=== PATIENT | female | born 1970 | race Caucasian/White ===

== ENCOUNTER 2022-10-12 16:49 | Emergency (ER) | payer MEDICAID, SELFPAY ==
[2022-10-12 16:50] VITALS: BP 119/74; PULSE 77; RESP 16; TEMP 37.1; O2SAT 98; BMI 17.7
--- NOTE | 2022-10-12 17:07 | PC.NURSE ---
PT DID STATE SOMETIMES I JUST WANT TO BUT WHEN QUESTIONED FURTHER DENIED THIS FEELING AT THIS TIME. SHE STATES SHE STRUGGLES WITH DEPRESSION AND DOES TALK WITH HER PRIMARY CARE DOCTOR ABOUT THESE FEELINGS. NURSE ASKED IF PATIENT WOULD LIKE TO SPEAK TO SOMEONE TODAY ABOUT THOSE FEELINGS AND PT DECLINED STATING I DON'T FEEL THAT WAY RIGHT NOW, I JUST DO FEEL LIKE THAT OCCASIONALLY.
--- NOTE | 2022-10-12 17:16 | W.ED.FALL ---
HPI - Fall General: Chief Complaint: Fall Stated Complaint: LEFT KNEE, SHOULDER AND CLAVICLE PAIN S/P FALL Time Seen by Provider: 10/12/22 17:06 Source: patient Mode of arrival: EMS History of Present Illness: 52-year-old female complaining of pain on her left side, left knee left shoulder and left clavicle pain after ground-level mechanical fall. Arrived by EMS denies loss of consciousness no other injuries she is not on any anticoagulants. She had stumbled when her dog knocked her over outside. In route she was given morphine and Zofran. Blood glucose by EMS was 141. She denies any chest pain or shortness of breath any other injury. MD complaint: fall Onset (ago): minute(s) Fall from: standing Place fall occurred: home Loss of consciousness: None Prolonged down time: no Symptoms prior to fall: none Context: tripped/slipped Location of injury - extremities: Left: shoulder, arm and knee Severity: moderate Associated symptoms-after fall: Denies abdominal pain, chest pain, confusion, difficulty walking, headache(s), hematuria, lightheadedness, neck pain, numbness, short of breath, vertigo or weakness Review of Systems Const: Denies: fever(s), chills, body aches, change in appetite, fatigue or malaise ENMT: Denies: throat pain, ear or mastoid pain, nasal discharge or nasal congestion Card: Denies: chest pain or lightheadedness Resp: Denies: dyspnea, productive cough or non-productive cough GI: Denies: abdominal pain, nausea or vomiting : Denies: difficulty voiding, dysuria, urinary frequency, urinary urgency or hematuria Musc: Reports: extremity pain; Denies: neck pain or back pain Skin/Breast: Denies: rash or pruritus Neuro: Denies: headache(s), difficulty walking, vertigo or confusion PFSH ED PFSH: Medical History (Updated 10/27/22 @ 06:14 by Jagdish Lazo DO) No significant past medical history Surgical History (Updated 10/27/22 @ 06:14 by Jagdish Lazo DO) No pertinent past surgical history Physical Exam Const: GENERAL APPEARANCE: cooperative and comfortable ORIENTATION/CONSCIOUSNESS: Yes awake, Yes oriented to person, Yes oriented to place and Yes oriented to time HENMT: COMMON NORMALS: normocephalic, atraumatic, hearing grossly normal bilaterally, external ears normal, EAC's normal, TM's normal bilaterally, Normal nasal mucous membranes and turbinates present, moist oral mucous membranes and oropharynx normal HEAD & SCALP: normocephalic and atraumatic NOSE: Normal nasal mucous membranes and turbinates present EXTERNAL EAR: Yes external ears normal EXTERNAL AUDITORY CANAL: EAC's normal TYMPANIC MEMBRANE: TM's normal bilaterally Eye: COMMON NORMALS: Equal, round and reactive pupils present, EOMs intact bilaterally, conjunctivae normal and no scleral icterus CONJUNCTIVA: Yes conjunctivae normal PUPIL: Yes Equal, round and reactive pupils present Neck/C-Spine: COMMON NORMALS: full ROM, no lymphadenopathy, supple and no JVD Resp: COMMON NORMALS: normal respiratory effort, No retractions, No use of accessory muscles and clear to auscultation bilaterally AUSCULTATION: clear to auscultation bilaterally Cardio: COMMON NORMALS: no JVD, regular rate, regular rhythm and No murmurs present (Cardio) RATE: regular rate RHYTHM: regular rhythm GI: COMMON NORMALS: Soft to palpation and No hepatosplenomegaly present AUSCULTATION: Yes normoactive bowel sounds PALPATION: Yes Soft to palpation, No Tenderness to palpation present (GI), No Guarding due to palpation present (GI) and Yes No hepatosplenomegaly present Extremity: COMMON NORMALS: capillary refill normal, no clubbing, cyanosis or edema, no calf tenderness and no pedal edema Neuro: SENSORIUM/ORIENTATION: Yes oriented to person, Yes oriented to place and Yes oriented to time Skin: COMMON NORMALS: no rashes or lesions noted GENERAL SKIN EXAM: no rashes or lesions noted Course Vital Signs: Vital signs: Vital Signs Temperature 98.7 F 10/12/22 16:50 Pulse Rate 88 10/12/22 18:23 Respiratory Rate 16 10/12/22 16:50 Blood Pressure 101/76 10/12/22 17:32 Pulse Oximetry 100 10/12/22 18:23 Oxygen Delivery Me thod 10/12/22 17:32 MDM - Fall Medical Decision Making Imaging reviewed imaging reviewed x-ray shows proximal humerus fracture mildly impacted. No other fractures noted. Discharged home in sling pain medications and referral to orthopedics Medical Records I reviewed the patient's medical records. Lab Data Radiology Impressions Clavicle X-Ray 10/12/22 17:17 IMPRESSION: 1. There is a mildly impacted fracture of the surgical neck left humerus. 2. The left clavicle is intact. Knee X-Ray 10/12/22 17:17 IMPRESSION: No acute bony abnormality. Shoulder X-Ray 10/12/22 17:17 IMPRESSION: There is an impacted fracture of the surgical neck proximal left humerus. Discharge Plan Discharge Patient Disposition: Home Clinical Impression: Fracture, humerus closed Condition: Stable Prescriptions: New hydrocodone-acetaminophen 5-325 mg tablet 1 tab PO Q6H PRN (Reason: pain) Qty: 20 0RF Discharge Orders: Discharge ED (Routine); Ordered 10/12/22 Ordered By: Jagdish Lazo Referrals: Flip Peoples PA [Primary Care Provider] - Discharge Diet: Usual diet Discharge Activity: Limit activity as instructed Patient Instructions: Opioid Safety, Pain Management Activity Restrictions/Additional Instructions: You are seen today after a fall. Your left proximal humerus (upper arm) was fractured. You should keep your arm in a sling until you see orthopedics. manager behavioral will make arrangements for you to have a follow-up with orthopedics in the next 10 to 14 days. Coding Level of Care Code ED Recreation Officer for Sum[facility] Max
--- NOTE | 2022-10-12 17:17 | XRR_ITS ---
PROCEDURE INFORMATION: Exam: XR Left Shoulder Exam date and time: 10/12/2022 5:24 PM Age: 52 years old Clinical indication: Injury or trauma; Fall; Blunt trauma (contusions or hematomas); Shoulder; Left; Additional info: Pain/trauma TECHNIQUE: Imaging protocol: Radiologic exam of the Left shoulder. Views: 2 or more views. COMPARISON: CR XR shoulder LT min 2V* [id number] 04/02/2018 10:38 AM FINDINGS: Bones/joints: There is an impacted fracture of the surgical neck proximal left humerus. No dislocation. Visualized ribs are intact. Soft tissues: There is soft tissue edema adjacent to the humerus fracture. XR/XR shoulder LT min 2V* [id number] IMPRESSION: There is an impacted fracture of the surgical neck proximal left humerus.
--- NOTE | 2022-10-12 17:17 | XRR_ITS ---
PROCEDURE INFORMATION: Exam: XR Left Clavicle, Complete Exam date and time: 10/12/2022 5:24 PM Age: 52 years old Clinical indication: Injury or trauma; Fall; Blunt trauma (contusions or hematomas); Shoulder; Left TECHNIQUE: Imaging protocol: Radiologic exam of the Left clavicle. Complete exam. Views: Any number of views. COMPARISON: CR XR shoulder LT min 2V* [id number] 04/02/2018 10:38 AM FINDINGS: Bones/joints: There is a mildly impacted fracture of the surgical neck left humerus. No acute fracture of the clavicle. No dislocation. Soft tissues: Edema adjacent to the humerus fracture. XR/[place] [id number] IMPRESSION: 1. There is a mildly impacted fracture of the surgical neck left humerus. 2. The left clavicle is intact.
--- NOTE | 2022-10-12 17:17 | XRR_ITS ---
PROCEDURE INFORMATION: Exam: XR Left Knee Exam date and time: 10/12/2022 5:24 PM Age: 52 years old Clinical indication: Injury or trauma; Fall; Blunt trauma; Knee; Left; Additional info: Pain/trauma TECHNIQUE: Imaging protocol: Radiologic exam of the Left knee. Views: 3 views. COMPARISON: No relevant prior studies available. FINDINGS: Bones/joints: There is no knee joint effusion. The joint spaces are maintained. There is no intra-articular body. No acute fracture or dislocation. No chondrocalcinosis. Soft tissues: Normal. Other findings: There is no foreign body. XR/XR knee LT 3V* [id number] IMPRESSION: No acute bony abnormality.
[2022-10-12 17:32] VITALS: BP 101/76; O2SAT 98
--- NOTE | 2022-10-12 17:54 | PC.NURSE ---
NURSE APPLIED BP CUFF TO PTS L ARM. PT DID C/O PAIN TO L ARM BUT WHEN NURSE SUGGESTED CUFF BE PLACED ELSEWHERE PT DECLINED STATING ITS OK THERE, I DON'T WANT TO MOVE TO PUT IT ON THE OTHER SIDE.
[2022-10-12 18:23] VITALS: PULSE 88; O2SAT 100
== END 2022-10-12 18:24 | disposition home or self-care (01) ==
PROVIDERS: Emergency Provider Family Medicine; PCP Emergency Medicine
DX: S42.212A Unspecified displaced fracture of surgical neck of left humerus, initial encounter for closed fracture (principal); W18.09XA Striking against other object with subsequent fall, initial encounter
CPT/HCPCS: 73000; 73030; 73562; 99283

== ENCOUNTER 2023-04-02 20:48 | Emergency (ER) | payer MEDICAID, SELFPAY ==
[2023-04-02 20:48] VITALS: BP 116/74; PULSE 63; RESP 18; TEMP 36.4; O2SAT 97; BMI 17.2
--- NOTE | 2023-04-02 20:50 | CTR_ITS ---
PROCEDURE INFORMATION: Exam: CT Abdomen And Pelvis Without Contrast Exam date and time: 04/02/2023 9:13 PM Age: 53 years old Clinical indication: Abdominal pain; Flank; Left; Prior surgery; Surgery date: 6+ months; Surgery type: Partial hysterectomy; Additional info: Flank pain TECHNIQUE: Imaging protocol: Computed tomography of the abdomen and pelvis without contrast. Radiation optimization: All CT scans at this facility use at least one of these dose optimization techniques: automated exposure control; mA and/or kV adjustment per patient size (includes targeted exams where dose is matched to clinical indication); or iterative reconstruction. REPORTING DATA: Count of CT and Cardiac NM exams in prior 12 months: This patient has received 0 known CTs and 0 known cardiac nuclear medicine studies in the 12 months prior to the current study. COMPARISON: CR XR lumbar spine 2-3V* [id number] 04/02/2018 10:38 AM RADIATION DOSE METRICS: Total DLP (mGy-cm): 310.95 FINDINGS: Liver: Normal. No mass. Gallbladder and bile ducts: Normal. No calcified stones. No ductal dilation. Pancreas: Normal. No ductal dilation. Spleen: Normal. No splenomegaly. Adrenal glands: Normal. No mass. Kidneys and ureters: One or more nonobstructing left renal calyceal stones. Stomach and bowel: Bowel wall thickening in the rectum consistent with mild proctitis. Appendix: No evidence of appendicitis. Intraperitoneal space: Unremarkable. No free air. No significant fluid collection. Vasculature: Calcification of the abdominal aorta and/or iliac arteries consistent with atherosclerotic vessel disease. One or more calcified pelvic phleboliths. Lymph nodes: Unremarkable. No enlarged lymph nodes. Urinary bladder: Unremarkable as visualized. Reproductive: Small uterus versus previous partial hysterectomy. Bones/joints: Unremarkable. No acute fracture. Soft tissues: Unremarkable. CT/CT abdomen pelvis wo con [id number] IMPRESSION: 1. One or more nonobstructing left renal calyceal stones. 2. Bowel wall thickening in the rectum consistent with mild proctitis.
[2023-04-02 21:10] LABS: Basophils # 0.1 10^3/uL (0.0-0.1); Basophils % 0.3 %; Eosinophils % 0.1 %; Lymphocytes # 1.8 10^3/uL (0.8-4.8); Lymphocytes % 9.6 %; Mean Corpuscular HGB Conc 31.9 g/dL (30.0-36.0); Mean Corpuscular Hemoglobin 31.9 pg (28.0-34.0); Mean Platelet Volume 10.5 fL (7.4-10.4); Monocytes # 0.7 10^3/uL (0.2-0.9); Monocytes % 3.7 %; Neutrophils # 16.15 10^3/uL (1.8-7.7); Neutrophils % 85.9 %; Nucleated Red Blood Cells % 0 %; Platelet Count 243 10^3/cmm (130-400); Red Cell Distribution Width 12.9 % (12.1-15.1); White Blood Count 18.8 10^3/uL (4.0-10.0)
[2023-04-02 21:22] LABS: Bilirubin Urine Neg (Negative); Blood Urine 3+ (Negative); Glucose Urine UA Norm (Normal); Ketones Urine 2+ (Negative); Nitrate Urine Negative (Negative); Protein Urine 1+ (Negative); Urine Appearance SL Hazy (CLEAR); Urine Color Yellow (Yellow); Urobilinogen Urine 1 mg/dL (Negative); pH Urine 5 (5-7)
[2023-04-02 21:23] LABS: Add Urine Culture? Yes; Add Urine Microscopic? YES; Bacteria Urine TRACE /hpf; Leukocyte Esterase Urine Negative (Negative); Mucus Urine 3+ /hpf; RBC Urine 80-100 /hpf (0-2); Squamous Epithelial Cell Urine 0-4 /hpf (0-5); WBC Urine 0-4 /hpf (0-5)
[2023-04-02 21:32] LABS: Alanine Aminotransferase 7 U/L (0-33); Albumin Level 4.8 g/dL (3.5-5.2); Alkaline Phosphatase 123 U/L (35-105); Anion Gap 15.1 (5-19); Aspartate Amino Transferase 13 U/L (0-32); Blood Urea Nitrogen 6 mg/dL (6-20); Calcium 11.8 mg/dL (8.5-10.5); Carbon Dioxide 24 mmol/L (22-29); Chloride 106 mmol/L (98-107); Globulin 2.8 g/dL (1.3-4.6); Glomerular Filtration Rate 128.6 mL/min (90-130); Glucose 120 mg/dL (65-115); Osmolality Calculated 291 mOsm/kg (285-295); Potassium 4.1 mmol/L (3.5-5.1); Sodium 141 mmol/L (136-145); Total Bilirubin 0.3 mg/dL (0.15-1.2); Total Protein 7.6 g/dL (6.6-8.7)
[2023-04-02 21:38] VITALS: BP 121/81; PULSE 59; RESP 16; O2SAT 97
--- NOTE | 2023-04-02 21:46 | ED_ITS ---
HPI - Abdominal Pain General: Chief Complaint: Abdominal Pain Stated Complaint: FLANK PAIN Time Seen by Provider: 04/02/23 20:50 History of Present Illness: Patient presents to the ER with complaints of left-sided sharp stabbing flank pain. Patient also had some nausea vomiting as well. Patient denies any urinary tract signs or symptoms at this moment. Patient was given 4 mg Zofran and and Toradol by EMS with complete relief. Patient does not have a history of kidney stones. When his pain was the worst patient was unaware of anything she could do to affect it in good or bad ways. Patient has never had this pain before. Review of Systems General: Reports: 10 or more systems reviewed and unremarkable except in HPI and below PFSH ED PFSH: Medical History (Updated 04/02/23 @ 21:58 by Clarence Oliveira DO) No significant past medical history Surgical History (Updated 10/27/22 @ 06:14 by Jagdish Lazo DO) No pertinent past surgical history Physical Exam Const: COMMON NORMALS: no acute distress, average body habitus, patient oriented x3, no limitations, alert and well nourished HENMT: COMMON NORMALS: normocephalic, atraumatic, hearing grossly normal bilaterally, external ears normal, Normal external nose present and moist oral mucous membranes HEAD & SCALP: normocephalic and atraumatic NOSE: Normal external nose present EXTERNAL EAR: Yes external ears normal Eye: COMMON NORMALS: Equal, round and reactive pupils present, EOMs intact bilaterally, conjunctivae normal and no scleral icterus CONJUNCTIVA: Yes conj unctivae normal PUPIL: Yes Equal, round and reactive pupils present Neck/C-Spine: COMMON NORMALS: full ROM, no lymphadenopathy, supple, no meningeal signs, no JVD and Thyroid normal THYROID: Thyroid normal Lymph: LYMPHATIC: no lymphadenopathy noted Chest: COMMONS NORMALS: normal inspection of the chest and normal palpation of entire chest wall Resp: COMMON NORMALS: normal respiratory effort, No retractions, No use of accessory muscles and clear to auscultation bilaterally AUSCULTATION: clear to auscultation bilaterally Cardio: COMMON NORMALS: no JVD, regular rate, regular rhythm, S1 normal heart sound present, S2 normal heart sound present, No gallops present (Cardio), No clicks present (Cardio), No murmurs present (Cardio) and No rub (Cardio) RATE: regular rate RHYTHM: regular rhythm HEART SOUNDS: S1 normal heart sound present and S2 normal heart sound present GI: COMMON NORMALS: Normal to inspection, nondistended, normoactive bowel sounds present, Soft to palpation, non-tender, No hepatosplenomegaly present and no masses PALPATION: Yes Soft to palpation and Yes No hepatosplenomegaly present : COMMON NORMALS: Yes no CVA tenderness BLADDER/KIDNEY EXAM: Yes no CVA tenderness Back/Pelvis: COMMON NORMALS: no CVA tenderness Neuro: COMMON NORMALS: patient oriented x3 SENSORIUM/ORIENTATION: Yes alert MENINGEAL SIGNS: Yes no meningeal signs Course Vital Signs: Vital signs: Vital Signs Temperature 97.6 F 04/02/23 20:48 Pulse Rate 59 L 04/02/23 21:38 Respiratory Rate 16 04/02/23 21:38 Blood Pressure 121/81 04/02/23 21:38 Pulse Oximetry 97 04/02/23 21:38 MDM - Abdominal Pain Medical Decision Making Patient presents to the ER by EMS with left flank pain is totally resolved after they gave her Toradol and Zofran. Lab work was obtained which was benign other than a 18,000 white count and hematuria. No signs of urinary tract infection at this time. Patient's normotensive not tachycardic and does not have a elevated temperature. Abdo pelvis CT scan showed 1 or more nonobstructing left renal c alyceal stones. Patient remained pain-free and nausea free during her stay in ER. Patient will be discharged home with oral Toradol to take as needed. Patient should follow-up with her PCP in the next 1 week. Differential Diagnosis Likely calculus of kidney; Unlikely abdominal pain, acute appendicitis, constipation, diverticulitis, endometriosis, gastroenteritis, pancreatitis or small bowel obstruction Medical Records I reviewed the patient's medical records. Lab Data I reviewed the patient's lab results. 04/02/23 21:04 04/02/23 21:04 Labs/Radiology: Radiology Impressions Abdomen/Pelvis CT 04/02/23 20:50 IMPRESSION: 1. One or more nonobstructing left renal calyceal stones. 2. Bowel wall thickening in the rectum consistent with mild proctitis. Laboratory Results WBC 18.8 10^3/uL (4.0-10.0) H 04/02/23 21:04 RBC 4.70 10^6/uL (4.1-5.3) 04/02/23 21:04 Hgb 15.0 g/dL (11.5-15.3) 04/02/23 21:04 Hct 47.0 % (37.0-47.0) 04/02/23 21:04 MCV 100.0 fl (81-99) H 04/02/23 21:04 MCH 31.9 pg (28.0-34.0) 04/02/23 21:04 MCHC 31.9 g/dL (30.0-36.0) 04/02/23 21:04 RDW 12.9 % (12.1-15.1) 04/02/23 21:04 Plt Count 243 10^3/cmm (130-400) 04/02/23 21:04 MPV 10.5 fL (7.4-10.4) H 04/02/23 21:04 Neut % (Auto) 85.9 % 04/02/23 21:04 Lymph % (Auto) 9.6 % 04/02/23 21:04 [place] % (Auto) 3.7 % 04/02/23 21:04 Eos % (Auto) 0.1 % 04/02/23 21:04 Baso % (Auto) 0.3 % 04/02/23 21:04 Neut # (Auto) 16.15 10^3/uL (1.8-7.7) H 04/02/23 21:04 Lymph # (Auto) 1.8 10^3/uL (0.8-4.8) 04/02/23 21:04 [place] # (Auto) 0.7 10^3/uL (0.2-0.9) 04/02/23 21:04 Eos # (Auto) 0.0 10^3/uL (0.0-0.8) 04/02/23 21:04 Baso # (Auto) 0.1 10^3/uL (0.0-0.1) 04/02/23 21:04 Nucleated RBC % (auto) 0 % 04/02/23 21:04 Nucleated RBCs # 0.0 /100WBC 04/02/23 21:04 Sodium 141 mmol/L (136-145) 04/02/23 21:04 Potassium 4.1 mmol/L (3.5-5.1) 04/02/23 21:04 Chloride 106 mmol/L (98-107) 04/02/23 21:04 Carbon Dioxide 24 mmol/L (22-29) 04/02/23 21:04 Anion Gap 15.1 (5-19) 04/02/23 21:04 BUN 6 mg/dL (6-20) 04/02/23 21:04 Creatinine 0.5 mg/dL (0.5-0.9) 04/02/23 21:04 GFR Calculation 128.6 mL/min (90-130) 04/02/23 21:04 Glucose 120 mg/dL (65-115) H 04/02/23 21:04 Calculated Osmolality 291 mOsm/kg (285-295) 04/02/23 21:04 Calcium 11.8 mg/dL (8.5-10.5) H 04/02/23 21:04 Total Bilirubin 0.3 mg/dL (0.15-1.2) 04/02/23 21:04 AST 13 U/L (0-32) 04/02/23 21:04 ALT 7 U/L (0-33) 04/02/23 21:04 Alkaline Phosphatase 123 U/L (35-105) H 04/02/23 21:04 Total Protein 7.6 g/dL (6.6-8.7) 04/02/23 21:04 Albumin 4.8 g/dL (3.5-5.2) 04/02/23 21:04 Globulin 2.8 g/dL (1.3-4.6) 04/02/23 21:04 Urine Color Yellow (Yellow) 04/02/23 17:00 Urine Appearance Sl hazy (CLEAR) A 04/02/23 17:00 Urine pH 5 (5-7) 04/02/23 17:00 Ur Specific [place] 1.030 (1.005-1.030) 04/02/23 17:00 Urine Protein 1+ (Negative) H 04/02/23 17:00 Urine Glucose (UA) Norm (Normal) 04/02/23 17:00 Urine Ketones 2+ (Negative) H 04/02/23 17:00 Urine Blood 3+ (Negative) H 04/02/23 17:00 Urine Nitrate Negative (Negative) 04/02/23 17:00 Urine Bilirubin Neg (Negative) 04/02/23 17:00 Urine Urobilinogen 1 mg/dL (Negative) H 04/02/23 17:00 Ur Leukocyte Esterase Negative (Negative) 04/02/23 17:00 Urine RBC 80-100 /hpf (0-2) H 04/02/23 17:00 Urine WBC 0-4 /hpf (0-5) H 04/02/23 17:00 Ur Squamous Epith Cells 0-4 /hpf (0-5) H 04/02/23 17:00 Amorphous Sediment Not Reportable 04/02/23 17:00 Urine Bacteria Trace /hpf (NONE) 04/02/23 17:00 Urine Mucus 3+ /hpf 04/02/23 17:00 Discharge Plan Discharge Patient Disposition: Home Clinical Impression: Kidney stone Condition: Stable Prescriptions: New ketorolac 10 mg tablet 10 mg PO TID PRN (Reason: pain) Qty: 14 0RF No Action hydrocodone-acetaminophen 5-325 mg tablet 1 tab PO Q6H PRN (Reason: pain) Qty: 20 0RF Discharge Orders: Discharge ED (Routine); Ordered 04/02/23 Ordered By: Clarence Oliveira Referrals: Flip Peoples PA [Primary Care Provider] - 1 week Patient Instructions: Kidney Stones, Pain Management Activity Restrictions/Additional Instructions: Please push plenty of fluids. Please follow-up with your family practice doctor in the next 7 to 10 days. Please take all pain medicine as directed. Coding Level of Care Code ED Stereotyper Apprentice for Sumanth Max
[2023-04-02 22:14] VITALS: BP 117/68; PULSE 67; RESP 14; O2SAT 97
== END 2023-04-02 22:15 | disposition home or self-care (01) ==
PROVIDERS: Emergency Provider Emergency Medicine; PCP Emergency Medicine
DX: N20.0 Calculus of kidney (principal); K62.89 Other specified diseases of anus and rectum
CPT/HCPCS: 36415; 74176; 80053; 81001; 85025; 87086; 99284

== ENCOUNTER → 2024-06-23 15:00 | Outpatient (BNVA) | payer MEDICAID, SELFPAY | PROVIDERS: PCP Emergency Medicine; Visit Provider Family Medicine | DX: J30.9 Allergic rhinitis, unspecified (principal); E78.2 Mixed hyperlipidemia; N39.0 Urinary tract infection, site not specified; R06.00 Dyspnea, unspecified; F41.1 Generalized anxiety disorder | CPT/HCPCS: 80053; 80061; 81003; 82306; 82310; 83970; 84443; 85025; 85651; 86140; 87086 ==